=== PATIENT | female | born 2005 | race Caucasian/White ===

== ENCOUNTER 2024-10-07 19:38 | Emergency (ER) | payer SELFPAY ==
[2024-10-07 19:39] VITALS: BP 122/84; PULSE 74; RESP 16; TEMP 36.9; O2SAT 100; BMI 23.8
[2024-10-07 19:41] VITALS: BP 122/84; PULSE 74; RESP 16; TEMP 36.9; O2SAT 100
--- NOTE | 2024-10-07 19:55 | EX.ED.DYSGE1 ---
HPI History of Present Illness Chief Complaint: Flank Pain PFSH PFSH Medical History no medical history Home Medications ?Medication ?Instructions ?Recorded ?Last Taken ?Type ondansetron 4 mg disintegrating 4 mg PO Q8H PRN PRN Nausea #10 tabs 10/07/24 Unknown Rx tablet sulfamethoxazole 800 1 tab PO BID 7 days #14 tabs 10/07/24 Unknown Rx mg-trimethoprim 160 mg tablet (Bactrim DS) Allergy/AdvReac Type Severity Reaction Status Date / Time latex Allergy RASH Verified 10/07/24 19:41 Family History no significant family his Surgical History no surgical history Social History Smoking Status: Never smoker EXAM Physical Exam Const Vital Signs: 10/07/24 19:39 10/07/24 19:41 10/07/24 20:41 Temperature 98.4 F 98.4 F 98.4 F Temperature Source Oral Oral Oral Pulse Rate 74 74 67 Respiratory Rate 16 16 16 Blood Pressure 122/84 H 122/84 H 122/90 H Blood Pressure Mean 96 96 100 Pulse Ox 100 100 100 Oxygen Delivery Method Room Air Room Air Room Air 10/07/24 21:00 10/07/24 21:39 10/07/24 22:05 Temperature 98.4 F 98.4 F Temperature Source Oral Pulse Rate 71 71 Respiratory Rate 18 16 Blood Pressure 122/90 H 120/73 120/73 Blood Pressure Mean 100 88 88 Pulse Ox 100 100 Oxygen Delivery Method Room Air [facility] MDM MDM Narrative Medical decision making narrative: HISTORY OF PRESENT ILLNESS: Chief complaint: Left flank pain 19-year-old female presents with left flank pain. Notes history of UTIs. Think she has UTI. Notes 3 days of frequency hematuria. Notes acute onset of left flank pain that began earlier today. Notes some nausea. Notes early in the week she had food poisoning had nausea vomiting at that time. Denies fever. I see for abdominal surgery. Denies smoking or family history connective tissue disorders. She does note a strong family history of kidney stones. Denies vaginal bleeding or discharge. REVIEW OF SYSTEMS: Pertinent positives: Left flank pain, frequency, hematuria Pertinent negatives: Abdominal pain, fever PHYSICAL EXAM: Nursing triage notes reviewed, Vital signs reviewed Constitutional: please see mdm HENT: MMM Eyes: Pupils equal round and reactive to light, Extraocular muscles intact Neck: No stridor, no JVD, full neck ROM Lungs: Clear to auscultation, No wheezing or rales. No increased work of breathing, no conversational dyspnea, no accessory muscle use, no nasal flaring. No respiratory distress noted Heart: Regular rate and rhythm, No murmurs, No rubs and No gallops, 2+ distal pulses (radial, femoral, posterior tibial) in all extremities Abdomen: Soft, there is no tenderness, rigidity, rebound or guarding, no obvious peritoneal signs, no palpable pulsatile abdominal masses, no auscultated abdominal bruit : No CVAT Extremities: No edema Neuro: No new focal neurological deficits, cranial nerves II through XII intact, 5/5 strength in all present extremities. Intact sensation to light touch in all present extremities, 2+ reflexes bilateral patella tendons. Skin: No rash or lesions noted MEDICAL DECISION MAKING: Chief Complaint: please see HPI External records reviewed: Reviewed prior imaging studies Factors affecting care: History of UTI Social determinants of health: Denies drug use History obtained from others: Significant other Consults: none MDM Narrative: The patient was initially hemodynamically stable, afebrile and nontoxic-appearing. Exam without CVA tenderness. Abdomen soft and nontender no pulsatile abdominal masses or auscultated bruits. I considered the following differential diagnosis: UTI, pyelonephritis, nephrolithiasis, AAA I obtained a broad lab and imaging workup to further determine if the patient was suffering from a life-threatening etiology. Initially treated the patient with IV fluids and Zofran. Withheld Toradol until urine test resulted ALL IMAGES (IF OBTAINED) HAVE BEEN PERSONALLY REVIEWED AND INTERPRETED BY MYSELF. CBC without leukocytosis, severe anemia, no thrombocytopenia. BMP without evidence of significant electrolyte abnormalities, no anion gap, no acute kidney injury. Lipase is wnl indicating no pancreatic inflammation. Urinalysis shows no evidence of urinary inflammation suggestive of UTI Urine is negative CT scan abdomen pelvis showed No evidence of nephrolithiasis or AAA. Did show concern for constipation may be fecal impaction. Discussed with the patient her last bowel movement was yesterday. She says she is never been constipated. Do not suspect the patient suffering from fecal impaction. The synthesis of the patient's history, physical exam, labs images suggest likely UTI. Will cover with Bactrim. Will send urine for culture. Strict return precautions were discussed. Follow-up instructions were given The patient and/or family, caregivers express understanding. The patient and/or family, caregivers agrees with the plan. Shared decision making: I will have a discussion with the patient and or visitors regarding risk/benefits of further testing or admission. They will be made aware of of the risk/benefits inherent in this decision they will be given the opportunity to voice understanding. Total critical care time today provided was at least 0 minutes. This excludes separately billable procedures. Critical care time (if documented) is secondary to the patient having high probability of clinically significant/life threatening deterioration in the patient's condition which required my urgent intervention. Impression: 1. Dysuria 2. Acute left flank pain Dispo: Discharge home This note was generated with [employer] dictation software. It may contain incorrect words, spelling, and punctuation that were not noted in review of the chart prior to signing. Lab Data Labs: Laboratory Results - last 24 hr 10/07/24 10/07/24 19:50 20:15 WBC 9.0 RBC 4.36 Hgb 13.6 Hct 39.0 MCV 89.4 MCH 31.2 MCHC 34.9 RDW Std Deviation 41.6 RDW Coeff of Zac 12.5 Plt Count 217 MPV 10.5 Immature Gran % (Auto) 0.200 Neut % (Auto) 65.4 Lymph % (Auto) 29.3 [place] % (Auto) 4.8 Eos % (Auto) 0.0 Baso % (Auto) 0.3 Absolute Neuts (auto) 5.9 Absolute Lymphs (auto) 2.63 Nucleated RBC % 0 Sodium 140 Potassium 3.6 Chloride 104 Carbon Dioxide 24.5 Anion Gap 11 BUN 15 Creatinine 0.75 Estim Creat Clear Calc 112.01 Est GFR (MDRD) Non-Af 117 BUN/Creatinine Ratio 20.5 H Glucose 96 Calcium 9.4 Lipase 31 Urine Color Yellow Urine Clarity Sl. Cloudy Urine pH 6.5 Ur Specific [place] 1.015 Urine Protein 15 H Urine Glucose (UA) Normal Urine Ketones Negative Urine Occult Blood 50 H Urine Nitrite Negative Urine Bilirubin Negative Urine Urobilinogen Normal Ur Leukocyte Esterase 100 H Urine RBC 0-5 SEEN Urine WBC 10-25 SEEN Ur Squamous Epith Cells 0 SEEN Urine Bacteria 3+ Urine Mucus 0 SEEN Urine Test Negative Radiography Diagnostic Testing: Clinical Impression(s) from Imaging Studies Abdomen/Pelvis CT 10/07/24 20:02 IMPRESSION: 1. Lobulated enlarged uterus, likely containing uterine fibroids. 2. Constipation with suggestion of fecal impaction of the rectum. 3. Hepatomegaly with fatty infiltration. 4. Umbilical hernia containing fat. 5. No obstructive uropathy. Reading Location: [facility] Discharge Plan Triage Chief Complaint: Flank Pain ED Provider: Nahun Florentino Dx/Rx/DC Orders Instructions: Urinary Tract Infections in Women Prescriptions: New sulfamethoxazole-trimethoprim [Bactrim DS] 800-160 mg tablet 1 tab PO BID 7 Days Qty: 14 0RF ondansetron 4 mg tablet,disintegrating 4 mg PO Q8H PRN PRN (Reason: Nausea) Qty: 10 0RF Primary Care Provider: Care Physician,No Primary Referrals: Nasim Zuleta MD [Med Staff - Hospitality Rec[employer]iter] - Care Physician,No Primary [Primary Care Provider] - Activity Restrictions/Additional Instructions: Thank you for trusting us with your care today! Your labs images were consistent with likely urinary tract infection. Please take antibiotics as prescribed until course completed. Please take Tylenol (2 pills, 650 mg), ibuprofen (2 pills, 400 mg) every 6 hours as needed for pain and fever control. Please return to the emergency department if your symptoms change or worsen. Please follow with your primary care physician for further outpatient evaluation and management. Print Language: Luxembourgish Disposition Disposition: Home, Self Care Discharge Date/Time: 10/07/24 22:07
--- NOTE | 2024-10-07 20:02 | CT_ITS ---
EXAM: CT Abdomen and Pelvis Without Intravenous Contrast CLINICAL INDICATION: LEFT SIDED FLANK PAIN R/O NEPHROLITHIASIS TECHNIQUE: Axial computed tomography images of the abdomen and pelvis without intravenous contrast. This CT exam was performed using one or more of the following dose reduction techniques: automated exposure control, adjustment of the mA and/or kV according to patient size, and/or use of iterative reconstruction technique. COMPARISON: No relevant prior studies available. FINDINGS: LUNG BASES: Unremarkable. No mass. No consolidation. ABDOMEN: LIVER: Hepatomegaly with fatty infiltration. GALLBLADDER AND BILE DUCTS: Unremarkable. No calcified stones. No ductal dilation. PANCREAS: Unremarkable. No ductal dilation. SPLEEN: Unremarkable. No splenomegaly. ADRENALS: Unremarkable. No mass. KIDNEYS AND URETERS: Unremarkable. No stones within either kidney. No hydronephrosis. STOMACH AND BOWEL: Constipation with suggestion of fecal impaction of the rectum. No obstruction. No mucosal thickening. PELVIS: APPENDIX: No findings to suggest acute appendicitis. BLADDER: Unremarkable. No stones. REPRODUCTIVE: Lobulated enlarged uterus, likely containing uterine fibroids. ABDOMEN and PELVIS: INTRAPERITONEAL SPACE: Unremarkable. No free air. No significant fluid collection. BONES/JOINTS: No acute fracture. No dislocation. SOFT TISSUES: Umbilical hernia containing fat. VASCULATURE: Unremarkable. No abdominal aortic aneurysm. LYMPH NODES: Unremarkable. No enlarged lymph nodes. CT/Abdomen/Pelvis without Cont IMPRESSION: 1. Lobulated enlarged uterus, likely containing uterine fibroids. 2. Constipation with suggestion of fecal impaction of the rectum. 3. Hepatomegaly with fatty infiltration. 4. Umbilical hernia containing fat. 5. No obstructive uropathy. Reading Location: [id number]
[2024-10-07] MEDS: 0.9% Normal Saline (1000mL) 1,000 ML 999 ML IV (20:12)
[2024-10-07 20:15] LABS: Hematocrit 39.0 % (37-47); Hemoglobin 13.6 g/dL (12.0-15.0); Immature Granulocytes Count 0.020 X10^3/uL (0.0-0.0); Mean Corp Hgb Conc 34.9 g/dL (32-36); Mean Corpuscular Volume 89.4 fL (81-99); Mean Platelet Vol. 10.5 fl (6.2-12.0); NRBC Flagged by Analyzer 0 % (0-5); Platelet Count 217 K/mm3 (150-450); RBC Distribution Width CV 12.5 % (11.6-14.6); RBC Distribution Width SD 41.6 fl (35.1-43.9); Red Blood Count 4.36 M/mm3 (4.2-5.4); White Blood Count 9.0 K/mm3 (4.4-11.0)
[2024-10-07 20:21] LABS: Mucous, Urine 0 SEEN /hpf (<or=2+); Squamous Epithelial Cells - UA 0 SEEN /hpf (5-10)
[2024-10-07 20:22] LABS: Color, Urine Yellow (Yellow); Glucose, Dipstick Normal (Normal); Ketone-Dipstick Negative (Negative); Leukocyte Esterase-Dipstick 100 /ul (Negative); Nitrite-Dipstick Negative (Negative); Occult Blood-Urine 50 /ul (Negative); Protein-Dipstick 15 mg/dl (Negative); Specific Gravity, Urine 1.015 (1.002-1.030); Urine Bilirubin Dipstick Negative (Negative)
[2024-10-07 20:41] VITALS: BP 122/90; PULSE 67; RESP 16; TEMP 36.9; O2SAT 100
[2024-10-07 20:41] LABS: Anion Gap 11 (5-15); BUN 15 mg/dL (4-19); BUN/Creat Ratio 20.5 RATIO (10-20); Calcium,Total 9.4 mg/dL (7.6-11.0); Carbon Dioxide 24.5 mmol/L (21.0-32.0); Chloride 104 mmol/L (98-108); Estimated Creatinine Clearance 112.01 ml/min (50-250); Glucose 96 mg/dL (70-99); Lipase 31 U/L (13-75); Potassium 3.6 mmol/L (3.3-5.1)
[2024-10-07 20:57] LABS: Internal QC Validated? YES +Cl - CLEAR BKGD; Pregnancy, Urine Negative Negative; Red Blood Cells-Urine 0-5 SEEN /hpf (0-5)
[2024-10-07 20:58] LABS: Record Kit Lot#,Urine Preg 0000947241
[2024-10-07 21:00] VITALS: BP 122/90; PULSE 71; RESP 18; TEMP 36.9; O2SAT 100
[2024-10-07 21:39] VITALS: BP 120/73
[2024-10-07] MEDS: Smz/Tmp Ds Tablet 1 TABLET PO (22:03)
[2024-10-07 22:05] VITALS: BP 120/73; PULSE 71; RESP 16; TEMP 36.9; O2SAT 100
== END 2024-10-07 22:07 | disposition home or self-care (01) ==
PROVIDERS: Emergency Provider Emergency Medicine; Visit Provider Emergency Medicine
DX: R30.0 Dysuria (principal); R31.9 Hematuria, unspecified; R35.0 Frequency of micturition; R10.9 Unspecified abdominal pain; R11.0 Nausea
CPT/HCPCS: 74176; 80048; 81001; 81025; 83690; 85025; 96361; 96374; 96375; 99284; A4216; J2405